=== PATIENT | male | born 1980 | race Caucasian/White ===

== ENCOUNTER 2020-12-19 14:02 | Emergency (ER) | payer OTHER ==
[2020-12-19 14:07] VITALS: TEMP 98.2; BMI 27.5
[2020-12-19] MEDS ORDERED: MORPHINE SULFATE 2 MG/ML VIAL ONE (14:27)
[2020-12-19] MEDS ORDERED: morphine CARPU-JECT 4 MG/1 ML DISP.SYRIN IVPUSH ONE (14:27)
[2020-12-19] MEDS ORDERED: HYDROmorphone HCL CARPU-JECT 2 MG/1 ML DISP.SYRIN IVPUSH ONE (14:55)
[2020-12-19] MEDS ORDERED: HYDROmorphone HCl 2 MG/ML VIAL ONE (14:58)
[2020-12-19] MEDS ORDERED: PROPOFOL 200 MG/20 ML VIAL IVPUSH ONE ×2 (15:25→16:37)
[2020-12-19] MEDS ORDERED: SODIUM CHLORIDE 1,000 ML IV STA (15:26)
[2020-12-19] MEDS ORDERED: PROPOFOL 20 ML ONE ×2 (15:30→16:09)
[2020-12-19] MEDS ORDERED: KETAMINE HCL 200 MG/20 ML VIAL ONE (16:08)
[2020-12-19] MEDS ORDERED: KETAMINE HCL 200 MG/20 ML VIAL IVPUSH ONE (16:38)
[2020-12-19 18:21] VITALS: BP 134/100; PULSE 98
== END 2020-12-19 17:23 | disposition home or self-care (01) ==
LOC: JER 14:02
PROC: 3E033NZ Introduction of Analgesics, Hypnotics, Sedatives into Peripheral Vein, Percutaneous Approach (ICD-10-PCS; principal; 2020-12-19)
PROC: 3E033GC Introduction of Other Therapeutic Substance into Peripheral Vein, Percutaneous Approach (ICD-10-PCS; 2020-12-19)
PROC: 3E030FZ Introduction of Intracirculatory Anesthetic into Peripheral Vein, Open Approach (ICD-10-PCS; 2020-12-19)
PROC: 3E0337Z Introduction of Electrolytic and Water Balance Substance into Peripheral Vein, Percutaneous Approach (ICD-10-PCS; 2020-12-19)
DX: S43.005A Unspecified dislocation of left shoulder joint, initial encounter (principal)
CPT/HCPCS: 73030-TC-LT-FY; 99285-25

== ENCOUNTER 2020-12-24 23:31 | Emergency (ER) | payer OTHER ==
[2020-12-24 23:41] VITALS: BMI 32.1
[2020-12-25] MEDS ORDERED: LIDOCAINE HCL 1%, 10 MG/ML (50 mL VIAL) INF ONE (00:10)
[2020-12-25] MEDS ORDERED: ACETAMINOPHEN 325 MG TABLET (FP) PO ONE (00:10)
[2020-12-25] MEDS ORDERED: LIDOCAINE HCL 1%, 10 MG/ML (20ML VIAL) ONE (00:12)
[2020-12-25] MEDS ORDERED: ACETAMINOPHEN 325 MG TABLET (FP) ONE (00:14)
[2020-12-25] MEDS ORDERED: morphine SULFATE 4 MG/ML VIAL ONE (01:49)
[2020-12-25] MEDS ORDERED: morphine CARPU-JECT 4 MG/1 ML DISP.SYRIN IVPUSH ONE (01:50)
[2020-12-25] MEDS ORDERED: MIDAZOLAM HCL 2 MG/2 ML SINGLE DOSE VIAL IVPUSH ONE (01:57)
[2020-12-25] MEDS ORDERED: ONDANSETRON 4 MG/2 ML VIAL IVPUSH ONE (01:58)
[2020-12-25] MEDS ORDERED: KETAMINE HCL 200 MG/20 ML VIAL IVPUSH ONE (01:58)
[2020-12-25] MEDS ORDERED: MIDAZOLAM HCL 2 MG/2 ML SINGLE DOSE VIAL ONE (02:42)
[2020-12-25] MEDS ORDERED: ONDANSETRON 4 MG/2 ML VIAL ONE (02:43)
[2020-12-25] MEDS ORDERED: KETAMINE HCL 200 MG/20 ML VIAL ONE (02:43)
[2020-12-25 04:09] VITALS: BP 128/83; PULSE 82
== END 2020-12-25 04:33 | disposition home or self-care (01) ==
LOC: JER 23:31
PROC: 3E033GC Introduction of Other Therapeutic Substance into Peripheral Vein, Percutaneous Approach (ICD-10-PCS; principal; 2020-12-24)
PROC: 3E033NZ Introduction of Analgesics, Hypnotics, Sedatives into Peripheral Vein, Percutaneous Approach (ICD-10-PCS; 2020-12-24)
PROC: 3E033GC Introduction of Other Therapeutic Substance into Peripheral Vein, Percutaneous Approach (ICD-10-PCS; 2020-12-24)
DX: S43.005A Unspecified dislocation of left shoulder joint, initial encounter (principal)
CPT/HCPCS: 73030-TC-LT-FY; 99284-25